=== PATIENT | female | born 1935 | race Caucasian/White ===

== ENCOUNTER → 2017-03-07 | Outpatient (CLI) | payer OTHER | LOC: FIMAGING 13:04 | DX: Z12.31 Encounter for screening mammogram for malignant neoplasm of breast (principal); Z80.3 Family history of malignant neoplasm of breast | CPT/HCPCS: G0202 ==

== ENCOUNTER 2017-05-05 15:12 | Emergency (ER) | payer OTHER ==
[2017-05-05 15:25] VITALS: O2SAT 97
--- NOTE | 2017-05-05 18:31 | EDPHY ---
H & P Smoking Status: Former smoker Time Seen by Provider: 05/05/17 17:48 HPI/ROS: CHIEF COMPLAINT: Epistaxis, now resolved HISTORY OF PRESENT ILLNESS: 81-year-old female presents to the emergency department with epistaxis. Patient states that this has been intermittent since last week. She does not take any anticoagulants. She denies any reported trauma. She has a scheduled appointment with ENT next week, however she did not feel that she could wait. She developed recurring bleeding just prior to arrival which is now resolved. ROS: Denies headache, trauma. (Emily Hill) Past Medical/Surgical History: Hypothyroidism, celiac (Emily Hill) Social History: (Emily Hill) Physical Exam: On examination the patient has no active bleeding noted. Her ears are clear. She has small amount of dried blood noted to Kiesselbach's plexus on the left nostril. Right side is clear. Sinuses are nontender. Neck is supple without lymphadenopathy. She is in no apparent distress. (Emily Hill) Constitutional: Initial Vital Signs Temperature (C) 36.7 C 05/05/17 15:22 Heart Rate 73 05/05/17 15:22 Respiratory Rate 18 05/05/17 15:22 Blood Pressure 161/108 H 05/05/17 15:22 O2 Sat (%) 97 05/05/17 15:22 O2 Delivery Mode Room Air Allergies/Adverse Reactions: No Known Allergies Allergy (Verified 05/05/17 15:21) Home Medications: Medication Instructions Recorded Levothyroxine [Synthroid 100 mcg 100 mcg PO DAILY06 05/05/17 (*)] MDM/Departure - MDM ED Course/Re-evaluation: Patient was monitored for several hours in the emergency department with no active bleeding from her nose. Bacitracin was applied to both nostrils. I encouraged her to continue with nasal lubricant. I do not think any cauterization is necessary since she has had no active bleeding for several hours. I encouraged her to use a humidifier in her room and keep scheduled appointment with ENT for next week. She will return if she has any recurring bleeding or any other concerns. (Emily Hill) I did not see this patient while she was in the emergency department. However her care was discussed with the PA while the patient was in the department. I agree with treatment plan and management (CasandraMauro Pierce) - Depart Disposition: Home, Routine, Self-Care Clinical Impression: Epistaxis, resolved Condition: Good Instructions: Nosebleed (ED) Additional Instructions: Nasal lubricant such as Vaseline daily. Continue humidifier in your bedroom. Do not pick your nose. Do not blow your nose if you can avoid it over the next especially 48 hours. Keep scheduled follow-up appointment with ENT next week. Return to the emergency department if you developed recurring nosebleeds, headache, or if you feel worse in any way. Referrals: Kelsey Merida MD [Primary Care Provider] - As per Instructions Theresa Rivera MD [Medical Doctor] - As per Instructions ([facility], keep scheduled follow-up appointment)
[2017-05-05 18:59] VITALS: BP 134/76; PULSE 76; RESP 16; TEMP 98.4
== END 2017-05-05 19:11 | disposition home or self-care (01) ==
DX: R04.0 Epistaxis (principal); Z87.891 Personal history of nicotine dependence

== ENCOUNTER → 2018-03-20 | Outpatient (CLI) | payer OTHER | LOC: FIMAGING 14:21 | PROVIDERS: ATTEND Internal Medicine | DX: Z12.31 Encounter for screening mammogram for malignant neoplasm of breast (principal); Z80.3 Family history of malignant neoplasm of breast ==